=== PATIENT | female | born 1960 | race Caucasian/White ===

== ENCOUNTER 2017-07-28 14:10 | Emergency (ER) | payer BC, OTHER ==
[~2017-07-28] VITALS: Ht 165.1 cm; Wt 100.0 kg
[~2017-07-28 14:10] MED LIST: ATEN50TA PO; LISI40TA PO; NAPR500 PO; ZITHTAB PO
[2017-07-28 14:12] VITALS: BP 154/99; PULSE 93; RESP 18; TEMP 98.9; O2SAT 96
--- NOTE | 2017-07-28 14:26 | PD ---
Physical Exam Time Seen by Provider: 14:25 Narrative 56-year-old female complaining of left fifth toe pain after stubbing it on the wall at approximately 10pm last night. Reports foot pain also. Ambulatory in triage. Patient seen in triage. VS reviewed. Awaiting bed placement. Data Data Last Documented VS Vital Signs Date Time Temp Pulse Resp B/P (MAP) Pulse Ox O2 Delivery O2 Flow Rate FiO2 07/28/17 14:12 98.9 93 18 154/99 (117) 96 Room Air Orders Orders Foot, Complete ([id number]) (07/28/17 14:26) MDM Supervised Visit with GENE: Deedee Null Jul 28, 2017 14:26
--- NOTE | 2017-07-28 14:46 | PD ---
HPI Chief Complaint: Injury Time Seen by Provider: 14:42 Travel History International Travel<30 days: No Contact w/Intl Traveler<30days: No Traveled to known affect area: No History of Present Illness HPI Patient comes in complaining of left pinky toe pain that began last night around 10:00 last night. States states she went to go to the restroom when she accidentally kicked the crown molding causing a throbbing pain to her left pinky toe. Patient took ibuprofen seemed to help. The patient is now having dull achy pain and started noticing bruising to occur, so she decided comes emergency Department further treatment and evaluation. Pain is worse with palpation and walking. Pain is radiating into her foot. PFSH Past Medical History Anxiety: Yes Heart Rhythm Problems: No Cardiac Catheterization: No Cardiovascular Problems: Yes (HTN) High Cholesterol: No Congestive Heart Failure: No Diabetes: Yes Diminished Hearing: No Hypertension: Yes Immunizations Current: No Menopausal: Yes Past Surgical History Section: Yes Coronary Artery Bypass Graft: No Tonsillectomy: Yes Social History Alcohol Use: No Tobacco Use: No Substance Use: No Allergies-Medications (Allergen,Severity, Reaction): Coded Allergies: No Known Allergies (Verified , 07/28/17) Reported Meds & Prescriptions Reported Meds & Active Scripts Active Naprosyn (Naproxen) 500 Mg Tab 500 Mg PO BID PRN Zithromax Z-Harsh (Azithromycin) 250 Mg Dspk 250 Mg PO DIRECTED 500 MG (2 tabs) day 1, then 1 tab days 2-5. Reported Atenolol 50 Mg Tab 50 Mg PO BID Lisinopril 40 Mg Tab 40 Mg PO DAILY Review of Systems Except as stated in HPI: all other systems reviewed are Neg Physical Exam Narrative GENERAL: Well-developed, overly nourished, in no acute distress, and non-ill appearing. SKIN: Focused skin assessment warm and dry. HEAD: Atraumatic. Normocephalic. EYES: Pupils equal and round. EOMI. No scleral icterus. No injection or drainage. ENT: No nasal bleeding or discharge. Mucous membranes pink and moist. NECK: Trachea midline. Supple. No nuclear rigidity. CARDIOVASCULAR: Capillary refill less than 2 seconds. RESPIRATORY: No accessory muscle use. No respiratory distress. MUSCULOSKELETAL: No obvious deformities. No clubbing. No cyanosis. No edema. Full range of motion. Patient reports tenderness to palpation over left fifth metatarsophalangeal joint. NEUROLOGICAL: Awake and alert. No obvious cranial nerve deficits. Motor grossly within normal limits. Normal speech. PSYCHIATRIC: Appropriate mood and affect; insight and judgment normal. Data Data Last Documented VS Vital Signs Date Time Temp Pulse Resp B/P (MAP) Pulse Ox O2 Delivery O2 Flow Rate FiO2 07/28/17 15:35 07/28/17 14:12 98.9 93 18 96 Room Air Orders Orders Foot, Complete ([id number]) (07/28/17 14:26) Splint Or Brace Apply/Monitor (07/28/17 15:16) Shoe Cast (07/28/17 ) MDM Medical Decision Making Medical Screen Exam Complete: Yes Emergency Medical Condition: Yes Interpretation(s) Left foot x-ray read by the radiologist shows: Oblique non-angulated or distracted fracture mid distal shaft proximal phalanx of fifth toe. Differential Diagnosis Fracture, dislocation, contusion, sprain, other Narrative Course The patient sustained a toe fracture. The distal extremity appears neurovascularly intact, without evidence of neurovascular injury nor compartment syndrome. Tendon exam also was intact. The effected limb was splinted. The patient was discharged with fracture and splint care instructions and given warnings for vascular compromise. The patient is to follow up with [employer]. The patient agrees with plan. Patient in no obvious distress upon re-evaluation. All pertinent Radiology result(s) discussed with patient. Any questions/concerns in reference to patient diagnosis/condition discussed and clarified prior to patient's discharge. Reinforced sheer importance of close follow up with patient's primary physician or primary care clinic and [employer]. Instructed patient to return to ED immediately, if symptoms return/worsen. Patient showed understanding of above instructions. Further instructions and recommendations were detailed in discharge paperwork. Patient ambulated without difficulty out of ED at discharge. Diagnosis Primary Impression: Fracture of fifth toe, left, closed Qualified Codes: S92.502A - Displaced unspecified fracture of left lesser toe( s), initial encounter for closed fracture Referrals: Litzy Bob DPM Patient Instructions: General Instructions, Splint Care (DC), Toe Fracture (ED) Additional Instructions: Follow-up with your primary care physician and/or podiatry next week for reevaluation. Use [id number] Tylenol and/or ibuprofen as needed for pain. Follow instructions on the packaging. Apply ice to affected area 20 m/h needed for pain. Jake tape toes to promote proper healing. Return to the emergency department if symptoms get worse. Disposition: 01 DISCHARGE HOME Condition: Stable Rafael Ambrocio Jul 28, 2017 14:45
--- NOTE | 2017-07-28 15:14 | RADRPT ---
EXAM DATE/TIME: 07/28/2017 15:08 [facility] COMPARISON: No previous studies available for comparison. INDICATIONS : Left foot, 5th digit pain after stubbing toe last night. MEDICAL HISTORY : None. SURGICAL HISTORY : None. ENCOUNTER: Initial ACUITY: 2 days PAIN SCORE: 8/10 LOCATION: Left foot, 5th digit. FINDINGS: Three view examination of the left foot demonstrates no dislocation with a oblique fracture of the m id to distal shaft proximal phalanx of the fifth toe. Non-angulated and non-distracted.. The tarsal bones appear intact. The interphalangeal and metatarsophalangeal joints are intact. The calcaneus is intact. Bony mineralization is normal. Calcaneal spur at the insertion of plantar aponeurosis. CONCLUSION: Oblique non-angulated or distracted fracture mid distal shaft proximal phalanx of fifth toe. Ishmael Barron MD on July 28, 2017 at 15:11 Board Certified Radiologist. This report was verified electronically.
== END 2017-07-28 15:50 | disposition home or self-care (01) ==
LOC: NEPK 14:10
DX: S92.532A Displaced fracture of distal phalanx of left lesser toe(s), initial encounter for closed fracture (principal); W22.01XA Walked into wall, initial encounter; Y92.008 Other place in unspecified non-institutional (private) residence as the place of occurrence of the external cause
CPT/HCPCS: 73630; 99283; L3260